=== PATIENT | female | born 1960 | race African-American/Black ===

== ENCOUNTER 2017-08-12 10:02 | Inpatient (IN) | payer OTHER ==
[2017-08-12] MEDS: DICYCLOMINE 20 MG INJ IM (10:30)
[2017-08-12] MEDS: SOD CHLORIDE 0.9% 1,000 ML IV ×3 (10:31→15:01)
[2017-08-12] MEDS: ONDANSETRON 4 MG INJ IV (10:46)
[2017-08-12 11:05] LABS: MODE ROOM AIR; MetHgb Venous 0.4 %; Sample Type Blood venous; Site OTHER; Venous COHb 0.6 %; Venous Oxygen Sat 35.4 mmHG (55.0-75.0); Venous Total Hemglobin 17.9 g/dl
[2017-08-12 11:25] LABS: ADD MAN DIFF? NO
[2017-08-12 11:28] LABS: BASOPHIL # 0.1 10^3/ul (0.0-0.1); BASOPHILS % 0.7 % (0.0-2.0); EOSINOPHILS % 0.1 % (0.0-7.0); LYMPHOCYTES # 2.1 10^3/ul (0.8-2.9); LYMPHOCYTES % 29.2 % (15.0-51.0); MEAN CORPUSCULAR HGB CONC 32.1 g/dl (32.0-37.0); MEAN CORPUSCULAR VOLUME 84.3 fl (82.0-101.0); MEAN PLATELET VOLUME 11.2 fl (7.4-10.4); MONOCYTE # 0.3 10^3/ul (0.3-0.9); MONOCYTES % 4.3 % (0.0-11.0); NEUTROPHIL # 4.7 10^3/ul (1.6-7.5); NEUTROPHILS % 65.3 % (39.0-77.0); PLATELET COUNT 259 10^3/UL (140-415); RED BLOOD COUNT 6.29 10^6/ul (4.20-5.40); RED CELL DISTRIBUTION WIDTH 13.7 % (11.5-14.5)
[2017-08-12 11:28] LABS: WHITE BLOOD COUNT 7.2 10^3/ul (4.8-10.8)
[2017-08-12 12:00] LABS: ADD UMIC YES; UR ASCORBIC ACID 20 mg/dL (NEGATIVE); UR BACTERIA FEW /HPF (NONE SEEN); UR BILIRUBIN (Dip) NEGATIVE (NEGATIVE); UR BLOOD (Dip) NEGATIVE (NEGATIVE); UR CLARITY SLIGHTLY CLOUDY (CLEAR); UR COLOR YELLOW (YELLOW); UR GLUCOSE (Dip) 3+ mg/dL (NEGATIVE); UR KETONES (Dip) 2+ mg/dL (NEGATIVE); UR LEUKOCYTE ESTERASE (Dip) 3+ Leu/ul (NEGATIVE); UR NITRITE (Dip) NEGATIVE (NEGATIVE); UR RBC 24 /HPF (0-5); UR SPECIFIC GRAVITY (Dip) 1.023 (1.003-1.030); UR SQUAMOUS EPITHELIAL CELL FEW /HPF (FEW); UR TOTAL PROTEIN (Dip) 1+ mg/dl (NEGATIVE); UR UROBILINOGEN (Dip) NEGATIVE (NEGATIVE); UR WBC 19 /HPF (0-5)
[2017-08-12 12:05] LABS: ANION GAP 30 (8-16); BLOOD UREA NITROGEN 12 mg/dl (7-20); CALCIUM 10.6 mg/dl (8.4-10.2); CARBON DIOXIDE 11 mmol/L (21-31); CHLORIDE 98 mmol/L (97-110); CREATININE 0.68 mg/dl (0.44-1.00); POTASSIUM 4.1 mmol/L (3.5-5.1); SODIUM 135 mmol/L (135-144)
[2017-08-12 12:10] LABS: GLUCOSE 425 mg/dl (70-220)
[2017-08-12] MEDS ORDERED: POTASSIUM CHLORIDE 40 MEQ in SOD CHLORIDE 0.9% 250 ML IV (12:10)
[2017-08-12 12:28] LABS: PHOSPHORUS 4.1 mg/dl (2.5-4.9)
[2017-08-12 12:28] LABS: MAGNESIUM 1.6 mg/dl (1.7-2.5)
[2017-08-12] MEDS ORDERED: POTASSIUM CHLORIDE 40 MEQ in DEXTROSE 5% 250 ML IV (12:31)
[2017-08-12] MEDS: INSULIN HUMAN REGULAR 100 UNIT in SOD CHLORIDE 0.9% 99 ML IV (13:34)
[2017-08-12] MEDS: MAGNESIUM SULFATE 1 GM/D5W 100 ML IVPB (13:34)
[2017-08-12] MEDS ORDERED: D5W-0.45 NACL + KCL 30 MEQ 1,000 ML IV (14:00)
[2017-08-12 14:49] LABS: ANION GAP 30 (8-16); BLOOD UREA NITROGEN 11 mg/dl (7-20); CALCIUM 9.7 mg/dl (8.4-10.2); CARBON DIOXIDE 13 mmol/L (21-31); CHLORIDE 102 mmol/L (97-110); CREATININE 0.62 mg/dl (0.44-1.00); GLUCOSE 336 mg/dl (70-220); POTASSIUM 4.8 mmol/L (3.5-5.1); SODIUM 140 mmol/L (135-144)
[2017-08-12] MEDS ORDERED: INSULIN HUMAN REGULAR 100 UNIT in SOD CHLORIDE 0.9% 99 ML IV (15:00)
[2017-08-12] MEDS ORDERED: DEXTROSE 50% 50 ML SYRINGE IV ×2 (15:00)
[2017-08-12] MEDS ORDERED: ONDANSETRON 4 MG INJ IV (15:00)
[2017-08-12] MEDS: ACCU-CHEK XX ×9 (15:00→23:00)
[2017-08-12 16:08] LABS: ANION GAP 21 (8-16); BLOOD UREA NITROGEN 10 mg/dl (7-20); CALCIUM 9.1 mg/dl (8.4-10.2); CARBON DIOXIDE 15 mmol/L (21-31); CHLORIDE 106 mmol/L (97-110); CREATININE 0.57 mg/dl (0.44-1.00); GLUCOSE 250 mg/dl (70-220); POTASSIUM 3.9 mmol/L (3.5-5.1); SODIUM 138 mmol/L (135-144)
[2017-08-12 16:41] LABS: HEMOGLOBIN A1C 10.8 % (0-5.9)
[2017-08-12] MEDS: DEXTROSE 5%-0.45% NACL 1,000 ML IV ×2 (17:50→22:43)
[2017-08-12] MEDS: LORAZEPAM 2 MG INJ IV (19:33)
[2017-08-12 19:40] LABS: ANION GAP 14 (8-16); BLOOD UREA NITROGEN 9 mg/dl (7-20); CALCIUM 9.5 mg/dl (8.4-10.2); CARBON DIOXIDE 22 mmol/L (21-31); CHLORIDE 108 mmol/L (97-110); CREATININE 0.48 mg/dl (0.44-1.00); GLUCOSE 102 mg/dl (70-220); POTASSIUM 3.7 mmol/L (3.5-5.1); SODIUM 140 mmol/L (135-144)
[2017-08-12] MEDS: FAMOTIDINE 20 MG INJ IV (21:00)
[2017-08-12] MEDS: DOCUSATE SODIUM 100 MG CAP PO (21:00)
[2017-08-13 00:41] LABS: ANION GAP 13 (8-16); BLOOD UREA NITROGEN 7 mg/dl (7-20); CALCIUM 9.2 mg/dl (8.4-10.2); CARBON DIOXIDE 22 mmol/L (21-31); CHLORIDE 103 mmol/L (97-110); CREATININE 0.47 mg/dl (0.44-1.00); GLUCOSE 330 mg/dl (70-220); POTASSIUM 3.7 mmol/L (3.5-5.1); SODIUM 134 mmol/L (135-144)
[2017-08-13] MEDS: ACCU-CHEK XX ×13 (01:00→12:00)
[2017-08-13 05:29] LABS: ADD MAN DIFF? NO
[2017-08-13 05:31] LABS: WHITE BLOOD COUNT 7.7 10^3/ul (4.8-10.8)
[2017-08-13 05:31] LABS: BASOPHILS % 0.4 % (0.0-2.0); EOSINOPHILS # 0.1 10^3/ul (0.0-0.5); EOSINOPHILS % 1.6 % (0.0-7.0); HEMATOCRIT 38.7 % (37.0-47.0); HEMOGLOBIN 12.6 g/dl (12.0-16.0); LYMPHOCYTES # 2.5 10^3/ul (0.8-2.9); LYMPHOCYTES % 32.5 % (15.0-51.0); MEAN CORPUSCULAR HEMOGLOBIN 26.5 pg (29.0-33.0); MEAN CORPUSCULAR HGB CONC 32.6 g/dl (32.0-37.0); MEAN CORPUSCULAR VOLUME 81.3 fl (82.0-101.0); MEAN PLATELET VOLUME 10.5 fl (7.4-10.4); MONOCYTE # 0.7 10^3/ul (0.3-0.9); MONOCYTES % 9.5 % (0.0-11.0); NEUTROPHIL # 4.2 10^3/ul (1.6-7.5); NEUTROPHILS % 55.5 % (39.0-77.0); PLATELET COUNT 226 10^3/UL (140-415); RED BLOOD COUNT 4.76 10^6/ul (4.20-5.40); RED CELL DISTRIBUTION WIDTH 13.4 % (11.5-14.5)
[2017-08-13] MEDS: INSULIN GLARGINE [LANtus] 3 ML PEN SC ×3 (05:51→11:06)
[2017-08-13 06:01] LABS: ANION GAP 10 (8-16); BLOOD UREA NITROGEN 5 mg/dl (7-20); CALCIUM 9.8 mg/dl (8.4-10.2); CARBON DIOXIDE 25 mmol/L (21-31); CHLORIDE 109 mmol/L (97-110); CREATININE 0.47 mg/dl (0.44-1.00); POTASSIUM 3.2 mmol/L (3.5-5.1); SODIUM 141 mmol/L (135-144)
[2017-08-13 06:11] LABS: GLUCOSE 42 mg/dl (70-220)
[2017-08-13] MEDS: DEXTROSE 5%-0.45% NACL 1,000 ML IV (06:43)
[2017-08-13] MEDS: SOD CHLORIDE 0.9% 1,000 ML IV ×2 (06:43→07:08)
[2017-08-13 06:45] LABS: MAGNESIUM 1.5 mg/dl (1.7-2.5)
[2017-08-13 06:45] LABS: PHOSPHORUS 1.8 mg/dl (2.5-4.9)
[2017-08-13] MEDS: POTASSIUM CHLORIDE 50 ML IVPB ×2 (07:00→08:00)
[2017-08-13] MEDS: POTASSIUM CHLORIDE (SR) 10 MEQ TAB PO (07:03)
[2017-08-13] MEDS: POTASSIUM CHLORIDE 40 MEQ in SOD CHLORIDE 0.9% 250 ML IV (07:47)
[2017-08-13] MEDS: DOCUSATE SODIUM 100 MG CAP PO (09:00)
[2017-08-13] MEDS: MAGNESIUM SULFATE 2 GM/50 ML 50 ML IVPB (09:07)
[2017-08-13] MEDS: FAMOTIDINE 20 MG INJ IV (09:07)
[2017-08-13] MEDS: POTASSIUM PHOSPHATE 15 MM in SOD CHLORIDE 0.9% 250 ML IVPB (11:04)
[2017-08-13] MEDS: INSULIN ASPART [NOVOLOG] 3 ML PEN SC ×2 (11:30→13:22)
[2017-08-13] MEDS ORDERED: GLUCOSE GEL 15 GRAM TUBE BUCCAL (13:00)
[2017-08-13] MEDS ORDERED: DEXTROSE 50% 50 ML SYRINGE IV ×2 (13:00)
[2017-08-13] MEDS ORDERED: GLUCOSE GEL 15 GRAM TUBE PO ×2 (13:00)
[2017-08-13] MEDS ORDERED: GLUCAGON 1 MG INJ IM (13:00)
[2017-08-13] MEDS ORDERED: INSULIN ASPART [NOVOLOG] 3 ML PEN SC (17:35)
== END 2017-08-13 14:33 | disposition left against medical advice (07) | DRG 639 ==
LOC: E/R 10:02 → ICU 12:42
DX: E10.10 Type 1 diabetes mellitus with ketoacidosis without coma (principal); E83.42 Hypomagnesemia; R11.2 Nausea with vomiting, unspecified; E86.0 Dehydration; F17.210 Nicotine dependence, cigarettes, uncomplicated; F12.90 Cannabis use, unspecified, uncomplicated; F32.9 Major depressive disorder, single episode, unspecified; Z79.4 Long term (current) use of insulin
CPT/HCPCS: 36415; 71045; 80048; 81001; 82803; 82962; 83036; 83735; 84100; 85025; 87086; 93005; 96361; 96374; 96375; 99291-25

== ENCOUNTER 2017-10-18 12:08 | Emergency (ER) | payer OTHER ==
[2017-10-18 14:02] LABS: ADD UMIC YES; UR ASCORBIC ACID NEGATIVE (NEGATIVE); UR BILIRUBIN (Dip) NEGATIVE (NEGATIVE); UR BLOOD (Dip) NEGATIVE (NEGATIVE); UR CLARITY CLEAR (CLEAR); UR COLOR YELLOW (YELLOW); UR GLUCOSE (Dip) 3+ mg/dL (NEGATIVE); UR KETONES (Dip) TRACE mg/dL (NEGATIVE); UR LEUKOCYTE ESTERASE (Dip) 2+ Leu/ul (NEGATIVE); UR NITRITE (Dip) NEGATIVE (NEGATIVE); UR RBC 4 /HPF (0-5); UR SPECIFIC GRAVITY (Dip) 1.032 (1.003-1.030); UR SQUAMOUS EPITHELIAL CELL FEW /HPF (FEW); UR TOTAL PROTEIN (Dip) NEGATIVE (NEGATIVE); UR UROBILINOGEN (Dip) NEGATIVE (NEGATIVE); UR WBC 5 /HPF (0-5)
== END 2017-10-18 14:51 | disposition home or self-care (01) ==
LOC: FTE 12:08
DX: M54.6 Pain in thoracic spine (principal); N39.0 Urinary tract infection, site not specified
CPT/HCPCS: 71045; 81001; 99284-25

== ENCOUNTER 2017-12-15 12:18 | Emergency (ER) | payer OTHER ==
[2017-12-15] MEDS: ONDANSETRON 4 MG INJ IV (13:03)
[2017-12-15 13:07] LABS: ADD MAN DIFF? NO
[2017-12-15 13:09] LABS: BASOPHILS % 0.4 % (0.0-2.0); EOSINOPHILS % 0.4 % (0.0-7.0); HEMATOCRIT 45.6 % (37.0-47.0); HEMOGLOBIN 15.2 g/dl (12.0-16.0); LYMPHOCYTES # 1.5 10^3/ul (0.8-2.9); LYMPHOCYTES % 15.8 % (15.0-51.0); MEAN CORPUSCULAR HEMOGLOBIN 26.5 pg (29.0-33.0); MEAN CORPUSCULAR HGB CONC 33.3 g/dl (32.0-37.0); MEAN CORPUSCULAR VOLUME 79.6 fl (82.0-101.0); MEAN PLATELET VOLUME 11.4 fl (7.4-10.4); MONOCYTE # 0.4 10^3/ul (0.3-0.9); MONOCYTES % 3.9 % (0.0-11.0); NEUTROPHIL # 7.6 10^3/ul (1.6-7.5); PLATELET COUNT 230 10^3/UL (140-415); RED BLOOD COUNT 5.73 10^6/ul (4.20-5.40); RED CELL DISTRIBUTION WIDTH 13.1 % (11.5-14.5)
[2017-12-15 13:09] LABS: WHITE BLOOD COUNT 9.6 10^3/ul (4.8-10.8)
[2017-12-15 13:20] LABS: ADD UMIC YES; UR ASCORBIC ACID NEGATIVE (NEGATIVE); UR BILIRUBIN (Dip) NEGATIVE (NEGATIVE); UR BLOOD (Dip) NEGATIVE (NEGATIVE); UR CLARITY SLIGHTLY CLOUDY (CLEAR); UR COLOR YELLOW (YELLOW); UR GLUCOSE (Dip) 3+ mg/dL (NEGATIVE); UR KETONES (Dip) 1+ mg/dL (NEGATIVE); UR LEUKOCYTE ESTERASE (Dip) 3+ Leu/ul (NEGATIVE); UR NITRITE (Dip) NEGATIVE (NEGATIVE); UR RBC 15 /HPF (0-5); UR SPECIFIC GRAVITY (Dip) 1.021 (1.003-1.030); UR SQUAMOUS EPITHELIAL CELL FEW /HPF (FEW); UR TOTAL PROTEIN (Dip) 1+ mg/dl (NEGATIVE); UR UROBILINOGEN (Dip) NEGATIVE (NEGATIVE); UR WBC 11 /HPF (0-5)
[2017-12-15 13:28] LABS: ALANINE AMINOTRANSFERASE 43 IU/L (13-69); ALBUMIN 4.5 g/dl (3.3-4.9); ALBUMIN/GLOBULIN RATIO 1.28; ALKALINE PHOSPHATASE 110 IU/L (42-121); ANION GAP 18 (8-16); ASPARTATE AMINO TRANSFERASE 24 IU/L (15-46); BILIRUBIN,INDIRECT 0.6 mg/dl (0-1.1); BILIRUBIN,TOTAL 0.6 mg/dl (0.2-1.3); BLOOD UREA NITROGEN 7 mg/dl (7-20); CALCIUM 10.1 mg/dl (8.4-10.2); CARBON DIOXIDE 29 mmol/L (21-31); CHLORIDE 101 mmol/L (97-110); CREATININE 0.47 mg/dl (0.44-1.00); GLUCOSE 335 mg/dl (70-220); LIPASE 15 U/L (23-300); POTASSIUM 3.4 mmol/L (3.5-5.1); SODIUM 145 mmol/L (135-144)
[2017-12-15] MEDS: CEFTRIAXONE 1 GM/50 ML (PMX) 50 ML IVPB (13:54)
[2017-12-15] MEDS: SOD CHLORIDE 0.9% 1,000 ML IV (13:54)
[2017-12-15] MEDS: METOCLOPRAMIDE 10 MG INJ IV (14:26)
[2017-12-15] MEDS: KETOROLAC 30 MG INJ IV (15:01)
== END 2017-12-15 15:39 | disposition home or self-care (01) ==
LOC: E/R 12:18
DX: E11.65 Type 2 diabetes mellitus with hyperglycemia (principal); N39.0 Urinary tract infection, site not specified; Z79.4 Long term (current) use of insulin; Z87.891 Personal history of nicotine dependence
CPT/HCPCS: 36415; 80053; 81001; 82962; 83690; 85025; 96374; 96375; 99284-25

== ENCOUNTER 2018-02-21 14:14 | Inpatient (IN) | payer OTHER ==
[~2018-02-21 14:14] MED LIST: CEFAZOLIN 1 GM INJ; METOPROLOL 5 MG INJ
[2018-02-21] MEDS ORDERED: HEPARIN 1000 UNITS/ML 10 ML INJ (15:35)
[2018-02-21] MEDS ORDERED: ONDANSETRON 4 MG INJ IV (16:30)
[2018-02-21] MEDS ORDERED: DIPHENHYDRAMINE 50 MG INJ IV (16:30)
[2018-02-21] MEDS ORDERED: hydrALAzine 20 MG INJ IV (16:30)
[2018-02-21] MEDS ORDERED: METOCLOPRAMIDE 10 MG INJ IV (16:30)
[2018-02-21] MEDS ORDERED: MIDAZOLAM 1 MG/ML 2 ML INJ (17:29)
[2018-02-21] MEDS ORDERED: PHENYLephrine (100 MCG/ML) 5ML SYG (17:45)
[2018-02-21] MEDS: CEFAZOLIN 1 GM INJ (18:12)
[2018-02-21] MEDS: GELATIN SIZE 100 SPONGE (18:12)
[2018-02-21] MEDS: THROMBIN 5000 UNIT VIAL (18:12)
[2018-02-21] MEDS ORDERED: hydrALAzine 20 MG INJ ×2 (18:24→19:49)
[2018-02-21] MEDS ORDERED: FENTAnyl 50 MCG/ML VIAL ×2 (18:26→19:49)
[2018-02-21] MEDS ORDERED: NALOXONE (0.4 MG/ML) INJ IV (18:30)
[2018-02-21] MEDS ORDERED: ACETAMINOPHEN 325 MG TAB PO (18:30)
[2018-02-21] MEDS ORDERED: NACL 0.9% 3 ML SYG IV (18:30)
[2018-02-21] MEDS: ACETAMINOPHEN 1000MG/100ML IV 100 ML IVPB (18:30)
[2018-02-21] MEDS ORDERED: ETOMIDATE 20 MG INJ (19:42)
[2018-02-21] MEDS ORDERED: ROCURONIUM 50 MG INJ (19:42)
[2018-02-21] MEDS ORDERED: GLYCOPYRROLATE 0.4 MG INJ (19:42)
[2018-02-21] MEDS ORDERED: NEOSTIGMINE 3 MG/3 ML SYRINGE (19:42)
[2018-02-21] MEDS ORDERED: LIDOCAINE 2% (SDV) 5 ML INJ (19:42)
[2018-02-21] MEDS ORDERED: ONDANSETRON 4 MG INJ (19:42)
[2018-02-21] MEDS: FENTAnyl 50 MCG/ML VIAL IV ×5 (20:26→21:03)
[2018-02-21] MEDS: LABETALOL HCL 20MG INJ IV ×2 (20:50→21:07)
[2018-02-21] MEDS: HYDROmorphONE 0.5 MG/0.5 ML SYG IV (22:01)
[2018-02-21] MEDS: NS + KCL 20 MEQ 1,000 ML IV (22:20)
[2018-02-21] MEDS: CEFAZOLIN 2 GM/50 ML (PMX) 50 ML IVPB (22:45)
[2018-02-21] MEDS ORDERED: DEXTROSE 50% 50 ML SYRINGE IV (23:30)
[2018-02-21] MEDS ORDERED: GLUCAGON 1 MG INJ IM (23:30)
[2018-02-21] MEDS ORDERED: GLUCOSE GEL 15 GRAM TUBE BUCCAL (23:30)
[2018-02-21] MEDS ORDERED: GLUCOSE GEL 15 GRAM TUBE PO ×2 (23:30)
[2018-02-22] MEDS: ACETAMINOPHEN 1000MG/100ML IV 100 ML IVPB ×4 (00:25→17:39)
[2018-02-22] MEDS: INSULIN ASPART [NOVOLOG] 3 ML PEN SC ×6 (00:37→20:49)
[2018-02-22] MEDS ORDERED: ACCU-CHEK XX (02:00)
[2018-02-22] MEDS: HYDROmorphONE 0.5 MG/0.5 ML SYG IV ×7 (04:01→23:35)
[2018-02-22 04:47] LABS: HEMATOCRIT 37.5 % (37.0-47.0); HEMOGLOBIN 12.2 g/dl (12.0-16.0)
[2018-02-22 05:03] LABS: HEMOGLOBIN A1C 10.9 % (0-5.9)
[2018-02-22 05:14] LABS: ANION GAP 10 (8-16); BLOOD UREA NITROGEN 6 mg/dl (7-20); CALCIUM 8.5 mg/dl (8.4-10.2); CARBON DIOXIDE 29 mmol/L (21-31); CHLORIDE 105 mmol/L (97-110); CREATININE 0.37 mg/dl (0.44-1.00); GLUCOSE 146 mg/dl (70-220); SODIUM 141 mmol/L (135-144)
[2018-02-22 05:17] LABS: CHOLESTEROL 100 mg/dl (100-200)
[2018-02-22 05:17] LABS: CHOL/HDL RATIO 2.4 RATIO; HDL CHOLESTEROL 41 mg/dl (37-92); LDL CHOLESTEROL,CALCULATED 44 mg/dl; TRIGLYCERIDES 77 mg/dl (0-149)
[2018-02-22 05:24] LABS: POTASSIUM 2.9 mmol/L (3.5-5.1)
[2018-02-22] MEDS: NS + KCL 20 MEQ 1,000 ML IV ×2 (05:35→14:53)
[2018-02-22] MEDS: CEFAZOLIN 2 GM/50 ML (PMX) 50 ML IVPB ×3 (05:39→21:51)
[2018-02-22] MEDS: POTASSIUM CHLORIDE (SR) 20 MEQ TAB PO (05:39)
[2018-02-22] MEDS: PAROXETINE 20 MG TAB PO (08:51)
[2018-02-22] MEDS: GABAPENTIN 400 MG CAP PO ×3 (08:53→20:45)
[2018-02-22] MEDS: QUETIAPINE 25 MG TAB PO (08:53)
[2018-02-22] MEDS: INSULIN DETEMIR [LEVEMIR] (100 UNITS/ML) SYG SC (08:56)
[2018-02-22] MEDS: METOPROLOL 25 MG TAB PO ×2 (08:57→20:44)
[2018-02-22] MEDS ORDERED: ONDANSETRON 4 MG INJ (09:28)
[2018-02-22] MEDS: ONDANSETRON 4 MG INJ IV (09:32)
[2018-02-22] MEDS: DEXTROSE 50% 50 ML SYRINGE IV (17:46)
[2018-02-23] MEDS: ACETAMINOPHEN 1000MG/100ML IV 100 ML IVPB ×4 (00:42→17:48)
[2018-02-23] MEDS: NS + KCL 20 MEQ 1,000 ML IV ×3 (00:42→22:23)
[2018-02-23] MEDS: INSULIN ASPART [NOVOLOG] 3 ML PEN SC ×6 (00:54→20:56)
[2018-02-23] MEDS: HYDROmorphONE 0.5 MG/0.5 ML SYG IV ×4 (02:50→20:12)
[2018-02-23] MEDS: CEFAZOLIN 2 GM/50 ML (PMX) 50 ML IVPB ×3 (05:10→21:41)
[2018-02-23] MEDS: GABAPENTIN 400 MG CAP PO ×3 (08:37→20:54)
[2018-02-23] MEDS: METOPROLOL 25 MG TAB PO ×2 (08:37→20:54)
[2018-02-23] MEDS: PAROXETINE 20 MG TAB PO (08:38)
[2018-02-23] MEDS: QUETIAPINE 25 MG TAB PO (08:39)
[2018-02-23] MEDS: INSULIN DETEMIR [LEVEMIR] (100 UNITS/ML) SYG SC (08:39)
[2018-02-24] MEDS: ACETAMINOPHEN 1000MG/100ML IV 100 ML IVPB ×4 (00:08→18:01)
[2018-02-24] MEDS: HYDROmorphONE 0.5 MG/0.5 ML SYG IV ×4 (01:10→18:04)
[2018-02-24] MEDS: CEFAZOLIN 2 GM/50 ML (PMX) 50 ML IVPB ×3 (05:47→21:15)
[2018-02-24] MEDS: NS + KCL 20 MEQ 1,000 ML IV ×2 (06:30→16:30)
[2018-02-24] MEDS: ONDANSETRON 4 MG INJ IV ×2 (06:53→13:30)
[2018-02-24] MEDS: GABAPENTIN 400 MG CAP PO ×3 (08:23→21:15)
[2018-02-24] MEDS: METOPROLOL 25 MG TAB PO ×2 (08:23→21:14)
[2018-02-24] MEDS: PAROXETINE 20 MG TAB PO (08:24)
[2018-02-24] MEDS: QUETIAPINE 25 MG TAB PO ×2 (08:24→21:15)
[2018-02-24] MEDS: INSULIN ASPART [NOVOLOG] 3 ML PEN SC ×4 (08:28→21:17)
[2018-02-24] MEDS: INSULIN DETEMIR [LEVEMIR] (100 UNITS/ML) SYG SC (08:28)
[2018-02-24 11:22] LABS: ADD MAN DIFF? NO
[2018-02-24 11:25] LABS: BASOPHILS % 0.2 % (0.0-2.0); EOSINOPHILS % 0.1 % (0.0-7.0); HEMATOCRIT 36.4 % (37.0-47.0); HEMOGLOBIN 11.8 g/dl (12.0-16.0); IMMATURE GRANS #M 0.06 10^3/ul; IMMATURE GRANS % (M) 0.7 %; LYMPHOCYTES # 0.6 10^3/ul (0.8-2.9); MEAN CORPUSCULAR HEMOGLOBIN 27.3 pg (29.0-33.0); MEAN CORPUSCULAR HGB CONC 32.4 g/dl (32.0-37.0); MEAN CORPUSCULAR VOLUME 84.3 fl (82.0-101.0); MEAN PLATELET VOLUME 11.9 fl (7.4-10.4); MONOCYTE # 0.4 10^3/ul (0.3-0.9); MONOCYTES % 4.7 % (0.0-11.0); NEUTROPHIL # 6.9 10^3/ul (1.6-7.5); NEUTROPHILS % 86.3 % (39.0-77.0); PLATELET COUNT 157 10^3/UL (140-415); RED BLOOD COUNT 4.32 10^6/ul (4.20-5.40); RED CELL DISTRIBUTION WIDTH 14.1 % (11.5-14.5)
[2018-02-24 11:48] LABS: HEMOGLOBIN A1C 6.2 % (0-5.9)
[2018-02-24] MEDS: PANTOPRAZOLE (EC) 40 MG TAB PO (18:01)
[2018-02-24] MEDS: DOCUSATE SODIUM 100 MG CAP PO (21:14)
[2018-02-25] MEDS: NS + KCL 20 MEQ 1,000 ML IV ×2 (00:03→12:38)
[2018-02-25] MEDS: ACETAMINOPHEN 1000MG/100ML IV 100 ML IVPB ×5 (00:03→23:53)
[2018-02-25 05:20] LABS: ADD MAN DIFF? NO
[2018-02-25 05:28] LABS: BASOPHILS % 0.3 % (0.0-2.0); EOSINOPHILS # 0.1 10^3/ul (0.0-0.5); EOSINOPHILS % 0.7 % (0.0-7.0); HEMATOCRIT 37.4 % (37.0-47.0); HEMOGLOBIN 11.8 g/dl (12.0-16.0); IMMATURE GRANS #M 0.03 10^3/ul; IMMATURE GRANS % (M) 0.4 %; LYMPHOCYTES # 1.2 10^3/ul (0.8-2.9); LYMPHOCYTES % 17.1 % (15.0-51.0); MEAN CORPUSCULAR HEMOGLOBIN 26.3 pg (29.0-33.0); MEAN CORPUSCULAR HGB CONC 31.6 g/dl (32.0-37.0); MEAN CORPUSCULAR VOLUME 83.5 fl (82.0-101.0); MEAN PLATELET VOLUME 11.8 fl (7.4-10.4); MONOCYTE # 0.5 10^3/ul (0.3-0.9); MONOCYTES % 7.4 % (0.0-11.0); NEUTROPHIL # 5.2 10^3/ul (1.6-7.5); NEUTROPHILS % 74.1 % (39.0-77.0); PLATELET COUNT 195 10^3/UL (140-415); RED BLOOD COUNT 4.48 10^6/ul (4.20-5.40); RED CELL DISTRIBUTION WIDTH 14.2 % (11.5-14.5)
[2018-02-25] MEDS: CEFAZOLIN 2 GM/50 ML (PMX) 50 ML IVPB ×3 (05:45→22:42)
[2018-02-25] MEDS: PANTOPRAZOLE (EC) 40 MG TAB PO (05:46)
[2018-02-25 06:07] LABS: ANION GAP 9 (8-16); BLOOD UREA NITROGEN 8 mg/dl (7-20); CALCIUM 8.9 mg/dl (8.4-10.2); CARBON DIOXIDE 31 mmol/L (21-31); CHLORIDE 106 mmol/L (97-110); CREATININE 0.49 mg/dl (0.44-1.00); GLUCOSE 98 mg/dl (70-220); POTASSIUM 3.6 mmol/L (3.5-5.1); SODIUM 142 mmol/L (135-144)
[2018-02-25] MEDS: PAROXETINE 20 MG TAB PO (08:37)
[2018-02-25] MEDS: GABAPENTIN 400 MG CAP PO ×3 (08:37→21:00)
[2018-02-25] MEDS: DOCUSATE SODIUM 100 MG CAP PO ×2 (08:38→20:58)
[2018-02-25] MEDS: INSULIN DETEMIR [LEVEMIR] (100 UNITS/ML) SYG SC (08:38)
[2018-02-25] MEDS: INSULIN ASPART [NOVOLOG] 3 ML PEN SC ×4 (08:39→21:00)
[2018-02-25] MEDS: METOPROLOL 25 MG TAB PO ×2 (08:40→20:59)
[2018-02-25] MEDS: HYDROmorphONE 0.5 MG/0.5 ML SYG IV ×2 (08:48→22:50)
[2018-02-25 09:57] LABS: INR 1.05; PROTIME 13.8 Sec (11.9-14.9); PT RATIO 1.1
[2018-02-25 09:58] LABS: PARTIAL THROMBOPLASTIN TIME 36.6 Sec (25.0-35.0)
[2018-02-25 10:08] LABS: ANION GAP 13 (8-16); BLOOD UREA NITROGEN 7 mg/dl (7-20); CALCIUM 9.1 mg/dl (8.4-10.2); CARBON DIOXIDE 30 mmol/L (21-31); CHLORIDE 102 mmol/L (97-110); CREATININE 0.47 mg/dl (0.44-1.00); GLUCOSE 168 mg/dl (70-220); POTASSIUM 4.1 mmol/L (3.5-5.1); SODIUM 141 mmol/L (135-144)
[2018-02-25] MEDS: QUETIAPINE 25 MG TAB PO (22:47)
[2018-02-26] MEDS: NS + KCL 20 MEQ 1,000 ML IV ×3 (03:57→17:50)
[2018-02-26] MEDS: HYDROmorphONE 0.5 MG/0.5 ML SYG IV ×4 (04:56→21:29)
[2018-02-26 05:04] LABS: ADD MAN DIFF? NO
[2018-02-26 05:13] LABS: BASOPHILS % 0.5 % (0.0-2.0); EOSINOPHILS # 0.1 10^3/ul (0.0-0.5); EOSINOPHILS % 1.2 % (0.0-7.0); HEMATOCRIT 35.1 % (37.0-47.0); HEMOGLOBIN 11.3 g/dl (12.0-16.0); IMMATURE GRANS #M 0.03 10^3/ul; IMMATURE GRANS % (M) 0.5 %; LYMPHOCYTES # 1.5 10^3/ul (0.8-2.9); LYMPHOCYTES % 23.4 % (15.0-51.0); MEAN CORPUSCULAR HEMOGLOBIN 26.5 pg (29.0-33.0); MEAN CORPUSCULAR HGB CONC 32.2 g/dl (32.0-37.0); MEAN CORPUSCULAR VOLUME 82.4 fl (82.0-101.0); MEAN PLATELET VOLUME 11.3 fl (7.4-10.4); MONOCYTE # 0.6 10^3/ul (0.3-0.9); MONOCYTES % 8.5 % (0.0-11.0); NEUTROPHIL # 4.3 10^3/ul (1.6-7.5); NEUTROPHILS % 65.9 % (39.0-77.0); PLATELET COUNT 228 10^3/UL (140-415); RED BLOOD COUNT 4.26 10^6/ul (4.20-5.40); RED CELL DISTRIBUTION WIDTH 14.1 % (11.5-14.5)
[2018-02-26 05:13] LABS: WHITE BLOOD COUNT 6.5 10^3/ul (4.8-10.8)
[2018-02-26] MEDS: CEFAZOLIN 2 GM/50 ML (PMX) 50 ML IVPB ×3 (05:31→21:30)
[2018-02-26] MEDS: PANTOPRAZOLE (EC) 40 MG TAB PO (05:33)
[2018-02-26 05:35] LABS: ANION GAP 9 (8-16); BLOOD UREA NITROGEN 6 mg/dl (7-20); CALCIUM 8.9 mg/dl (8.4-10.2); CARBON DIOXIDE 32 mmol/L (21-31); CHLORIDE 102 mmol/L (97-110); CREATININE 0.47 mg/dl (0.44-1.00); GLUCOSE 183 mg/dl (70-220); POTASSIUM 3.4 mmol/L (3.5-5.1); SODIUM 140 mmol/L (135-144)
[2018-02-26] MEDS: ACETAMINOPHEN 1000MG/100ML IV 100 ML IVPB ×3 (06:19→17:50)
[2018-02-26] MEDS ORDERED: BUPIVACAINE 0.5%/EPI (SDV) 30 ML INJ (07:19)
[2018-02-26] MEDS: INSULIN ASPART [NOVOLOG] 3 ML PEN SC ×4 (07:50→21:00)
[2018-02-26] MEDS ORDERED: HYDROmorphONE 1 MG/5 ML IV SYRINGE IV (08:00)
[2018-02-26] MEDS ORDERED: hydrALAzine 20 MG INJ IV (08:00)
[2018-02-26] MEDS ORDERED: ONDANSETRON 4 MG INJ IV (08:00)
[2018-02-26] MEDS: DOCUSATE SODIUM 100 MG CAP PO ×2 (08:07→21:41)
[2018-02-26] MEDS: GABAPENTIN 400 MG CAP PO ×3 (08:07→21:31)
[2018-02-26] MEDS: INSULIN DETEMIR [LEVEMIR] (100 UNITS/ML) SYG SC (08:07)
[2018-02-26] MEDS: PAROXETINE 20 MG TAB PO (08:07)
[2018-02-26] MEDS: METOPROLOL 25 MG TAB PO ×2 (08:07→21:32)
[2018-02-26] MEDS: GELATIN SIZE 100 SPONGE (09:15)
[2018-02-26] MEDS: THROMBIN 5000 UNIT VIAL (09:15)
[2018-02-26] MEDS ORDERED: METOPROLOL 5 MG INJ (09:32)
[2018-02-26] MEDS ORDERED: ONDANSETRON 4 MG INJ (09:32)
[2018-02-26] MEDS ORDERED: hydrALAzine 20 MG INJ (09:32)
[2018-02-26] MEDS ORDERED: LIDOCAINE 1% (MDV) 20 ML INJ (09:32)
[2018-02-26] MEDS ORDERED: SUCCINYLCHOLINE CHLORIDE 100 MG/5 ML SYG IV (09:32)
[2018-02-26] MEDS ORDERED: PHENYLephrine (100 MCG/ML) 5ML SYG (09:32)
[2018-02-26] MEDS ORDERED: ROCURONIUM 50 MG INJ (09:32)
[2018-02-26] MEDS ORDERED: MIDAZOLAM 1 MG/ML 2 ML INJ (09:32)
[2018-02-26] MEDS ORDERED: METOCLOPRAMIDE 10 MG INJ (09:32)
[2018-02-26] MEDS ORDERED: ETOMIDATE 20 MG INJ (09:32)
[2018-02-26] MEDS ORDERED: CEFAZOLIN 1 GM INJ (09:32)
[2018-02-26] MEDS: POLYMYXIN/BACITRACIN 1L IRRIG (10:02)
[2018-02-26] MEDS: ROPIVACAINE 0.5 % 30 ML VIAL (10:03)
[2018-02-26] MEDS ORDERED: SUGAMMADEX SODIUM 200 MG/2 ML VIAL IV (10:10)
[2018-02-26] MEDS: LABETALOL HCL 20MG INJ IV ×2 (10:35→11:09)
[2018-02-26] MEDS: HYDROmorphONE 1 MG/5 ML IV SYRINGE IV (11:09)
[2018-02-26 13:45] LABS: ANION GAP 12 (8-16); BLOOD UREA NITROGEN 8 mg/dl (7-20); CALCIUM 8.2 mg/dl (8.4-10.2); CARBON DIOXIDE 27 mmol/L (21-31); CHLORIDE 102 mmol/L (97-110); GLUCOSE 277 mg/dl (70-220); POTASSIUM 3.4 mmol/L (3.5-5.1); SODIUM 138 mmol/L (135-144)
[2018-02-26] MEDS: hydrALAzine 20 MG INJ IV (18:01)
[2018-02-26] MEDS: QUETIAPINE 25 MG TAB PO (21:31)
[2018-02-27] MEDS: ACETAMINOPHEN 1000MG/100ML IV 100 ML IVPB ×4 (00:06→18:19)
[2018-02-27] MEDS: HYDROmorphONE 0.5 MG/0.5 ML SYG IV ×8 (03:33→22:07)
[2018-02-27 05:12] LABS: ADD MAN DIFF? NO
[2018-02-27 05:13] LABS: WHITE BLOOD COUNT 5.2 10^3/ul (4.8-10.8)
[2018-02-27 05:13] LABS: BASOPHILS % 0.6 % (0.0-2.0); EOSINOPHILS # 0.1 10^3/ul (0.0-0.5); EOSINOPHILS % 1.1 % (0.0-7.0); HEMATOCRIT 34.1 % (37.0-47.0); HEMOGLOBIN 10.9 g/dl (12.0-16.0); LYMPHOCYTES # 1.2 10^3/ul (0.8-2.9); LYMPHOCYTES % 23.3 % (15.0-51.0); MEAN CORPUSCULAR HEMOGLOBIN 26.9 pg (29.0-33.0); MEAN CORPUSCULAR VOLUME 84.2 fl (82.0-101.0); MEAN PLATELET VOLUME 10.6 fl (7.4-10.4); MONOCYTE # 0.6 10^3/ul (0.3-0.9); MONOCYTES % 10.9 % (0.0-11.0); NEUTROPHIL # 3.3 10^3/ul (1.6-7.5); NEUTROPHILS % 63.3 % (39.0-77.0); PLATELET COUNT 251 10^3/UL (140-415); RED BLOOD COUNT 4.05 10^6/ul (4.20-5.40); RED CELL DISTRIBUTION WIDTH 14.1 % (11.5-14.5)
[2018-02-27] MEDS: CEFAZOLIN 2 GM/50 ML (PMX) 50 ML IVPB ×3 (05:21→22:07)
[2018-02-27] MEDS: PANTOPRAZOLE (EC) 40 MG TAB PO (05:22)
[2018-02-27 05:31] LABS: ANION GAP 14 (8-16); BLOOD UREA NITROGEN 3 mg/dl (7-20); CALCIUM 8.6 mg/dl (8.4-10.2); CARBON DIOXIDE 27 mmol/L (21-31); CHLORIDE 103 mmol/L (97-110); CREATININE 0.42 mg/dl (0.44-1.00); GLUCOSE 162 mg/dl (70-220); POTASSIUM 3.5 mmol/L (3.5-5.1); SODIUM 140 mmol/L (135-144)
[2018-02-27] MEDS: NS + KCL 20 MEQ 1,000 ML IV ×2 (07:51→14:30)
[2018-02-27] MEDS: DOCUSATE SODIUM 100 MG CAP PO ×2 (08:33→20:28)
[2018-02-27] MEDS: GABAPENTIN 400 MG CAP PO ×3 (08:33→20:26)
[2018-02-27] MEDS: INSULIN DETEMIR [LEVEMIR] (100 UNITS/ML) SYG SC (08:34)
[2018-02-27] MEDS: INSULIN ASPART [NOVOLOG] 3 ML PEN SC ×4 (08:35→20:36)
[2018-02-27] MEDS: PAROXETINE 20 MG TAB PO (08:36)
[2018-02-27] MEDS: METOPROLOL 25 MG TAB PO ×2 (08:37→20:31)
[2018-02-27] MEDS: HYDROCODONE/APAP (5/325) TAB PO (17:18)
[2018-02-27] MEDS: QUETIAPINE 25 MG TAB PO (20:39)
[2018-02-28] MEDS: HYDROmorphONE 0.5 MG/0.5 ML SYG IV ×8 (00:13→21:54)
[2018-02-28] MEDS: ACETAMINOPHEN 1000MG/100ML IV 100 ML IVPB ×4 (00:18→18:30)
[2018-02-28] MEDS: NS + KCL 20 MEQ 1,000 ML IV ×3 (00:30→20:30)
[2018-02-28 05:49] LABS: ADD MAN DIFF? NO; BASOPHILS % 0.3 % (0.0-2.0); EOSINOPHILS # 0.1 10^3/ul (0.0-0.5); HEMATOCRIT 31.7 % (37.0-47.0); HEMOGLOBIN 10.2 g/dl (12.0-16.0); LYMPHOCYTES # 1.2 10^3/ul (0.8-2.9); LYMPHOCYTES % 20.5 % (15.0-51.0); MEAN CORPUSCULAR HEMOGLOBIN 26.8 pg (29.0-33.0); MEAN CORPUSCULAR HGB CONC 32.2 g/dl (32.0-37.0); MEAN CORPUSCULAR VOLUME 83.4 fl (82.0-101.0); MEAN PLATELET VOLUME 10.8 fl (7.4-10.4); MONOCYTE # 0.8 10^3/ul (0.3-0.9); MONOCYTES % 13.8 % (0.0-11.0); NEUTROPHIL # 3.7 10^3/ul (1.6-7.5); NEUTROPHILS % 63.9 % (39.0-77.0); PLATELET COUNT 276 10^3/UL (140-415)
[2018-02-28 05:49] LABS: WHITE BLOOD COUNT 5.8 10^3/ul (4.8-10.8)
[2018-02-28 06:16] LABS: ANION GAP 8 (8-16); BLOOD UREA NITROGEN 5 mg/dl (7-20); CALCIUM 8.6 mg/dl (8.4-10.2); CARBON DIOXIDE 34 mmol/L (21-31); CHLORIDE 99 mmol/L (97-110); CREATININE 0.46 mg/dl (0.44-1.00); GLUCOSE 198 mg/dl (70-220); POTASSIUM 3.4 mmol/L (3.5-5.1); SODIUM 138 mmol/L (135-144)
[2018-02-28] MEDS: PANTOPRAZOLE (EC) 40 MG TAB PO (06:47)
[2018-02-28] MEDS: CEFAZOLIN 2 GM/50 ML (PMX) 50 ML IVPB ×3 (06:48→21:54)
[2018-02-28] MEDS: GABAPENTIN 400 MG CAP PO ×3 (08:41→20:36)
[2018-02-28] MEDS: PAROXETINE 20 MG TAB PO (08:41)
[2018-02-28] MEDS: DOCUSATE SODIUM 100 MG CAP PO ×2 (08:41→20:36)
[2018-02-28] MEDS: METOPROLOL 25 MG TAB PO ×2 (08:42→20:36)
[2018-02-28] MEDS: INSULIN ASPART [NOVOLOG] 3 ML PEN SC ×4 (08:47→21:00)
[2018-02-28] MEDS: INSULIN DETEMIR [LEVEMIR] (100 UNITS/ML) SYG SC (08:47)
[2018-02-28] MEDS: BISACODYL (EC) 5 MG TAB PO (12:24)
[2018-02-28] MEDS: QUETIAPINE 25 MG TAB PO (20:36)
[2018-02-28] MEDS ORDERED: DOCUSATE SODIUM 100 MG CAP PO (21:00)
[2018-03-01] MEDS: HYDROmorphONE 0.5 MG/0.5 ML SYG IV (00:06)
[2018-03-01] MEDS: ACETAMINOPHEN 1000MG/100ML IV 100 ML IVPB ×2 (00:30→07:30)
[2018-03-01 05:08] LABS: ADD MAN DIFF? NO
[2018-03-01 05:15] LABS: BASOPHILS % 0.5 % (0.0-2.0); EOSINOPHILS # 0.1 10^3/ul (0.0-0.5); EOSINOPHILS % 1.2 % (0.0-7.0); HEMATOCRIT 35.4 % (37.0-47.0); HEMOGLOBIN 11.3 g/dl (12.0-16.0); LYMPHOCYTES # 1.5 10^3/ul (0.8-2.9); LYMPHOCYTES % 23.5 % (15.0-51.0); MEAN CORPUSCULAR HEMOGLOBIN 26.5 pg (29.0-33.0); MEAN CORPUSCULAR HGB CONC 31.9 g/dl (32.0-37.0); MEAN CORPUSCULAR VOLUME 82.9 fl (82.0-101.0); MEAN PLATELET VOLUME 10.6 fl (7.4-10.4); MONOCYTE # 0.7 10^3/ul (0.3-0.9); MONOCYTES % 10.3 % (0.0-11.0); NEUTROPHIL # 4.2 10^3/ul (1.6-7.5); NEUTROPHILS % 63.9 % (39.0-77.0); PLATELET COUNT 332 10^3/UL (140-415); RED BLOOD COUNT 4.27 10^6/ul (4.20-5.40); RED CELL DISTRIBUTION WIDTH 14.5 % (11.5-14.5)
[2018-03-01 05:15] LABS: WHITE BLOOD COUNT 6.5 10^3/ul (4.8-10.8)
[2018-03-01 05:44] LABS: ANION GAP 13 (8-16)
[2018-03-01 05:53] LABS: CARBON DIOXIDE 35 mmol/L (21-31); CHLORIDE 96 mmol/L (97-110); POTASSIUM 3.8 mmol/L (3.5-5.1); SODIUM 140 mmol/L (135-144)
[2018-03-01 05:56] LABS: BLOOD UREA NITROGEN 5 mg/dl (7-20); CALCIUM 9.5 mg/dl (8.4-10.2); CREATININE 0.51 mg/dl (0.44-1.00); GLUCOSE 402 mg/dl (70-220)
[2018-03-01] MEDS: GABAPENTIN 400 MG CAP PO ×3 (06:30→21:10)
[2018-03-01] MEDS: PANTOPRAZOLE (EC) 40 MG TAB PO (06:30)
[2018-03-01] MEDS: INSULIN ASPART [NOVOLOG] 3 ML PEN SC ×5 (06:35→21:00)
[2018-03-01] MEDS: CEFAZOLIN 2 GM/50 ML (PMX) 50 ML IVPB (07:00)
[2018-03-01] MEDS: HYDROCODONE/APAP (5/325) TAB PO (07:14)
[2018-03-01] MEDS: NS + KCL 20 MEQ 1,000 ML IV (07:30)
[2018-03-01] MEDS ORDERED: OXYCODONE/ACETAMINOPHEN (10/325) TAB PO (08:00)
[2018-03-01] MEDS ORDERED: ACETAMINOPHEN 325 MG TAB PO (08:00)
[2018-03-01] MEDS: PAROXETINE 20 MG TAB PO (08:15)
[2018-03-01] MEDS: METOPROLOL 25 MG TAB PO ×2 (08:15→21:15)
[2018-03-01] MEDS: DOCUSATE SODIUM 100 MG CAP PO ×2 (08:15→21:10)
[2018-03-01] MEDS: INSULIN DETEMIR [LEVEMIR] (100 UNITS/ML) SYG SC (08:20)
[2018-03-01] MEDS: OXYCODONE/ACETAMINOPHEN (10/325) TAB PO ×3 (09:25→20:03)
[2018-03-01] MEDS ORDERED: NA PHOSPHATE/BIPHOS 133 ML ENEMA PR (17:00)
[2018-03-01] MEDS: MAGNESIUM HYDROXIDE 30ML CUP PO (17:37)
[2018-03-01] MEDS: QUETIAPINE 25 MG TAB PO (21:10)
[2018-03-02] MEDS: OXYCODONE/ACETAMINOPHEN (10/325) TAB PO ×4 (00:01→15:27)
[2018-03-02] MEDS: PANTOPRAZOLE (EC) 40 MG TAB PO (04:44)
[2018-03-02] MEDS: GABAPENTIN 400 MG CAP PO ×4 (04:58→21:12)
[2018-03-02 05:18] LABS: ADD MAN DIFF? NO
[2018-03-02 05:25] LABS: WHITE BLOOD COUNT 8.3 10^3/ul (4.8-10.8)
[2018-03-02 05:25] LABS: BASOPHILS % 0.5 % (0.0-2.0); EOSINOPHILS # 0.1 10^3/ul (0.0-0.5); EOSINOPHILS % 1.6 % (0.0-7.0); HEMATOCRIT 35.4 % (37.0-47.0); HEMOGLOBIN 11.2 g/dl (12.0-16.0); LYMPHOCYTES # 1.8 10^3/ul (0.8-2.9); LYMPHOCYTES % 21.9 % (15.0-51.0); MEAN CORPUSCULAR HEMOGLOBIN 26.5 pg (29.0-33.0); MEAN CORPUSCULAR HGB CONC 31.6 g/dl (32.0-37.0); MEAN CORPUSCULAR VOLUME 83.9 fl (82.0-101.0); MEAN PLATELET VOLUME 10.6 fl (7.4-10.4); MONOCYTE # 0.7 10^3/ul (0.3-0.9); MONOCYTES % 8.2 % (0.0-11.0); NEUTROPHIL # 5.6 10^3/ul (1.6-7.5); NEUTROPHILS % 67.4 % (39.0-77.0); PLATELET COUNT 361 10^3/UL (140-415); RED BLOOD COUNT 4.22 10^6/ul (4.20-5.40); RED CELL DISTRIBUTION WIDTH 14.6 % (11.5-14.5)
[2018-03-02 06:09] LABS: ANION GAP 10 (8-16); BLOOD UREA NITROGEN 9 mg/dl (7-20); CALCIUM 9.3 mg/dl (8.4-10.2); CARBON DIOXIDE 33 mmol/L (21-31); CHLORIDE 99 mmol/L (97-110); CREATININE 0.46 mg/dl (0.44-1.00); GLUCOSE 259 mg/dl (70-220); POTASSIUM 3.7 mmol/L (3.5-5.1); SODIUM 138 mmol/L (135-144)
[2018-03-02] MEDS: DOCUSATE SODIUM 100 MG CAP PO (08:43)
[2018-03-02] MEDS: PAROXETINE 20 MG TAB PO (08:44)
[2018-03-02] MEDS: METOPROLOL 25 MG TAB PO ×2 (08:44→21:13)
[2018-03-02] MEDS: INSULIN ASPART [NOVOLOG] 3 ML PEN SC ×6 (08:45→21:00)
[2018-03-02] MEDS: INSULIN DETEMIR [LEVEMIR] (100 UNITS/ML) SYG SC (08:46)
[2018-03-02] MEDS: oxyCODONE (CR) 15 MG TAB [oxyCONTIN] PO ×2 (12:46→21:11)
[2018-03-02] MEDS: SENNA/DOCUSATE NA (8.6MG/50MG) TAB PO ×2 (12:47→21:12)
[2018-03-02] MEDS: CYCLOBENZAPRINE 10 MG TAB PO (18:34)
[2018-03-02] MEDS ORDERED: INSULIN GLARGINE [LANTus] (100 UNITS/ML) SYG SC (20:00)
[2018-03-02] MEDS: HYDROCODONE/APAP (5/325) TAB PO (21:11)
[2018-03-03] MEDS: HYDROCODONE/APAP (5/325) TAB PO ×2 (05:01→13:24)
[2018-03-03] MEDS: PANTOPRAZOLE (EC) 40 MG TAB PO (05:04)
[2018-03-03 05:22] LABS: ADD MAN DIFF? NO
[2018-03-03 05:26] LABS: BASOPHILS % 0.5 % (0.0-2.0); EOSINOPHILS # 0.1 10^3/ul (0.0-0.5); EOSINOPHILS % 1.7 % (0.0-7.0); HEMATOCRIT 35.2 % (37.0-47.0); HEMOGLOBIN 11.1 g/dl (12.0-16.0); LYMPHOCYTES # 1.5 10^3/ul (0.8-2.9); LYMPHOCYTES % 18.2 % (15.0-51.0); MEAN CORPUSCULAR HEMOGLOBIN 26.4 pg (29.0-33.0); MEAN CORPUSCULAR HGB CONC 31.5 g/dl (32.0-37.0); MEAN CORPUSCULAR VOLUME 83.8 fl (82.0-101.0); MONOCYTE # 0.8 10^3/ul (0.3-0.9); MONOCYTES % 9.7 % (0.0-11.0); NEUTROPHIL # 5.6 10^3/ul (1.6-7.5); NEUTROPHILS % 69.4 % (39.0-77.0); PLATELET COUNT 406 10^3/UL (140-415); RED CELL DISTRIBUTION WIDTH 14.4 % (11.5-14.5)
[2018-03-03 05:26] LABS: WHITE BLOOD COUNT 8.1 10^3/ul (4.8-10.8)
[2018-03-03 06:05] LABS: ANION GAP 11 (8-16); BLOOD UREA NITROGEN 8 mg/dl (7-20); CALCIUM 9.3 mg/dl (8.4-10.2); CARBON DIOXIDE 34 mmol/L (21-31); CHLORIDE 97 mmol/L (97-110); CREATININE 0.45 mg/dl (0.44-1.00); GLUCOSE 276 mg/dl (70-220); POTASSIUM 3.9 mmol/L (3.5-5.1); SODIUM 138 mmol/L (135-144)
[2018-03-03] MEDS: oxyCODONE (CR) 15 MG TAB [oxyCONTIN] PO ×2 (07:59→20:48)
[2018-03-03] MEDS: SENNA/DOCUSATE NA (8.6MG/50MG) TAB PO ×2 (08:33→20:48)
[2018-03-03] MEDS: METOPROLOL 25 MG TAB PO ×2 (08:34→20:49)
[2018-03-03] MEDS: PAROXETINE 20 MG TAB PO (08:34)
[2018-03-03] MEDS: GABAPENTIN 400 MG CAP PO ×3 (08:35→20:48)
[2018-03-03] MEDS: HYDROmorphONE 0.5 MG/0.5 ML SYG IM ×6 (08:36→19:39)
[2018-03-03] MEDS: INSULIN ASPART [NOVOLOG] 3 ML PEN SC ×7 (08:39→20:58)
[2018-03-03] MEDS: INSULIN DETEMIR [LEVEMIR] (100 UNITS/ML) SYG SC (10:53)
[2018-03-04] MEDS: HYDROmorphONE 0.5 MG/0.5 ML SYG IM ×3 (02:15→07:30)
[2018-03-04 05:31] LABS: WHITE BLOOD COUNT 5.7 10^3/ul (4.8-10.8)
[2018-03-04 05:31] LABS: ADD MAN DIFF? NO; BASOPHILS % 0.5 % (0.0-2.0); EOSINOPHILS # 0.1 10^3/ul (0.0-0.5); EOSINOPHILS % 2.3 % (0.0-7.0); HEMATOCRIT 36.3 % (37.0-47.0); HEMOGLOBIN 11.3 g/dl (12.0-16.0); LYMPHOCYTES # 1.5 10^3/ul (0.8-2.9); LYMPHOCYTES % 25.7 % (15.0-51.0); MEAN CORPUSCULAR HEMOGLOBIN 26.3 pg (29.0-33.0); MEAN CORPUSCULAR HGB CONC 31.1 g/dl (32.0-37.0); MEAN CORPUSCULAR VOLUME 84.4 fl (82.0-101.0); MEAN PLATELET VOLUME 10.4 fl (7.4-10.4); MONOCYTE # 0.6 10^3/ul (0.3-0.9); MONOCYTES % 10.7 % (0.0-11.0); NEUTROPHIL # 3.4 10^3/ul (1.6-7.5); NEUTROPHILS % 59.9 % (39.0-77.0); PLATELET COUNT 399 10^3/UL (140-415); RED CELL DISTRIBUTION WIDTH 14.6 % (11.5-14.5)
[2018-03-04] MEDS: PANTOPRAZOLE (EC) 40 MG TAB PO (05:33)
[2018-03-04 05:42] LABS: ANION GAP 15 (8-16); BLOOD UREA NITROGEN 9 mg/dl (7-20); CALCIUM 9.5 mg/dl (8.4-10.2); CARBON DIOXIDE 30 mmol/L (21-31); CHLORIDE 97 mmol/L (97-110); CREATININE 0.43 mg/dl (0.44-1.00); GLUCOSE 340 mg/dl (70-220); POTASSIUM 4.3 mmol/L (3.5-5.1); SODIUM 138 mmol/L (135-144)
[2018-03-04] MEDS: GABAPENTIN 400 MG CAP PO ×2 (07:28→12:23)
[2018-03-04] MEDS: METOPROLOL 25 MG TAB PO (08:45)
[2018-03-04] MEDS: oxyCODONE (CR) 15 MG TAB [oxyCONTIN] PO (08:45)
[2018-03-04] MEDS: PAROXETINE 20 MG TAB PO (08:45)
[2018-03-04] MEDS: SENNA/DOCUSATE NA (8.6MG/50MG) TAB PO (08:45)
[2018-03-04] MEDS: INSULIN ASPART [NOVOLOG] 3 ML PEN SC ×6 (08:50→13:03)
[2018-03-04] MEDS: INSULIN DETEMIR [LEVEMIR] (100 UNITS/ML) SYG SC (08:50)
[2018-03-04] MEDS: CYCLOBENZAPRINE 10 MG TAB PO (09:18)
[2018-03-04] MEDS: OXYCODONE/ACETAMINOPHEN (10/325) TAB PO (12:23)
== END 2018-03-04 13:00 | disposition home health service (06) ==
LOC: MS1 02-23 02:22 → REC 14:14 → ICU 21:23
PROVIDERS: Neurological Surgery
PROC: 0SG00A0 Fusion of Lumbar Vertebral Joint with Interbody Fusion Device, Anterior Approach, Anterior Column, Open Approach (ICD-10-PCS; principal; 2018-02-21 16:00)
PROC: 0ST20ZZ Resection of Lumbar Vertebral Disc, Open Approach (ICD-10-PCS; 2018-02-21 16:00)
PROC: 0SG30A0 Fusion of Lumbosacral Joint with Interbody Fusion Device, Anterior Approach, Anterior Column, Open Approach (ICD-10-PCS; 2018-02-21 16:00)
PROC: 0ST40ZZ Resection of Lumbosacral Disc, Open Approach (ICD-10-PCS; 2018-02-21 16:00)
PROC: 0SG30K1 Fusion of Lumbosacral Joint with Nonautologous Tissue Substitute, Posterior Approach, Posterior Column, Open Approach (ICD-10-PCS; 2018-02-21 17:32)
PROC: 0SG00K1 Fusion of Lumbar Vertebral Joint with Nonautologous Tissue Substitute, Posterior Approach, Posterior Column, Open Approach (ICD-10-PCS; 2018-02-21 17:32)
PROC: 01NB0ZZ Release Lumbar Nerve, Open Approach (ICD-10-PCS; 2018-02-21 17:32)
PROC: 0SB30ZZ Excision of Lumbosacral Joint, Open Approach (ICD-10-PCS; 2018-02-21 17:32)
DX: M51.17 Intervertebral disc disorders with radiculopathy, lumbosacral region (principal); E44.0 Moderate protein-calorie malnutrition; Z68.1 Body mass index [BMI] 19.9 or less, adult; I10 Essential (primary) hypertension; E78.5 Hyperlipidemia, unspecified; E11.40 Type 2 diabetes mellitus with diabetic neuropathy, unspecified; Z79.4 Long term (current) use of insulin; K59.00 Constipation, unspecified; M71.38 Other bursal cyst, other site; G89.29 Other chronic pain; M47.816 Spondylosis without myelopathy or radiculopathy, lumbar region; E88.2 Lipomatosis, not elsewhere classified
CPT/HCPCS: 72100; 72114; 72131; 80048; 80061; 82962; 83036; 85014; 85018; 85025; 85335; 85610; 86850; 86900; 86901; 86920; 87081; 88304; 93970; 97110; 97116; 97161; 97164; 97530

== ENCOUNTER 2018-11-17 20:05 | Inpatient (IN) | payer OTHER ==
[2018-11-17] MEDS: LIDOCAINE/MYLANTA 40 ML BTL PO (21:56)
[2018-11-17 22:07] LABS: ADD MAN DIFF? NO
[2018-11-17 22:14] LABS: WHITE BLOOD COUNT 7.8 10^3/ul (4.8-10.8)
[2018-11-17 22:14] LABS: BASOPHILS % 0.5 % (0.0-2.0); HEMATOCRIT 50.6 % (37.0-47.0); HEMOGLOBIN 16.2 g/dl (12.0-16.0); LYMPHOCYTES # 1.5 10^3/ul (0.8-2.9); MEAN CORPUSCULAR HEMOGLOBIN 25.6 pg (29.0-33.0); MEAN CORPUSCULAR VOLUME 80.1 fl (82.0-101.0); MEAN PLATELET VOLUME 11.8 fl (7.4-10.4); MONOCYTE # 0.3 10^3/ul (0.3-0.9); MONOCYTES % 3.3 % (0.0-11.0); NEUTROPHILS % 76.8 % (39.0-77.0); PLATELET COUNT 294 10^3/UL (140-415); RED BLOOD COUNT 6.32 10^6/ul (4.20-5.40); RED CELL DISTRIBUTION WIDTH 13.7 % (11.5-14.5)
[2018-11-17] MEDS: HYDROmorphONE 1 MG/ML SYG IV (22:19)
[2018-11-17] MEDS: ONDANSETRON 4 MG INJ IV (22:20)
[2018-11-17] MEDS: FAMOTIDINE 20 MG INJ IV (22:20)
[2018-11-17 22:31] LABS: ALANINE AMINOTRANSFERASE 30 IU/L (13-69); ALBUMIN/GLOBULIN RATIO 1.25; ALKALINE PHOSPHATASE 134 IU/L (42-121); ANION GAP 24 (5-13); ASPARTATE AMINO TRANSFERASE 22 IU/L (15-46); BILIRUBIN,INDIRECT 0.8 mg/dl (0-1.1); BILIRUBIN,TOTAL 0.8 mg/dl (0.2-1.3); BLOOD UREA NITROGEN 12 mg/dl (7-20); CALCIUM 10.7 mg/dl (8.4-10.2); CARBON DIOXIDE 20 mmol/L (21-31); CHLORIDE 97 mmol/L (97-110); CREATININE 0.47 mg/dl (0.44-1.00); Estimated GFR > 60 mL/min (>60); GLUCOSE 361 mg/dl (70-220); LIPASE 23 U/L (23-300); POTASSIUM 3.8 mmol/L (3.5-5.1); SODIUM 141 mmol/L (135-144)
[2018-11-17 22:32] LABS: ADD UMIC YES; UR ASCORBIC ACID NEGATIVE (NEGATIVE); UR BACTERIA FEW /HPF (NONE SEEN); UR BILIRUBIN (Dip) NEGATIVE (NEGATIVE); UR BLOOD (Dip) 1+ mg/dL (NEGATIVE); UR CLARITY CLOUDY (CLEAR); UR COLOR YELLOW (YELLOW); UR GLUCOSE (Dip) 3+ mg/dL (NEGATIVE); UR KETONES (Dip) 2+ mg/dL (NEGATIVE); UR LEUKOCYTE ESTERASE (Dip) 3+ Leu/ul (NEGATIVE); UR NITRITE (Dip) NEGATIVE (NEGATIVE); UR RBC 35 /HPF (0-5); UR SPECIFIC GRAVITY (Dip) 1.031 (1.003-1.030); UR SQUAMOUS EPITHELIAL CELL MODERATE /HPF (FEW); UR TOTAL PROTEIN (Dip) 3+ mg/dl (NEGATIVE); UR UROBILINOGEN (Dip) NEGATIVE (NEGATIVE); UR WBC 27 /HPF (0-5)
[2018-11-17 22:40] LABS: TROPONIN-I < 0.012 ng/ml (0.000-0.120)
[2018-11-18 00:37] LABS: AADO2 Arterial 13.5 mmHg (7.0-24.0); Allen Test ACCEPTAB; Arterial Base Excess -5.5 mmol/L (-3.0-3); Arterial Blood Gas Oxygen Sat 96.1 mmHG (95.0-98.0); Arterial COHb 0.7 % (0.0-3.0); Arterial Fraction of Oxyhgb 95.2 % (93.0-99.0); Arterial HCO3 19.5 mmol/L (22.0-26.0); Arterial MetHb 0.2 % (0.0-1.5); Arterial pCO2 36.9 mmhg (35-45); MODE ROOM AIR; Site Left Radial
[2018-11-18] MEDS ORDERED: NS + KCL 40 MEQ 1,000 ML IV (00:40)
[2018-11-18] MEDS ORDERED: DEXTROSE 10%/0.45% NACL 1,000 ML IV (00:40)
[2018-11-18] MEDS ORDERED: SOD CHLORIDE 0.9% 1,000 ML IV (00:40)
[2018-11-18] MEDS ORDERED: D10/0.45% NACL + KCL 40 MEQ 1,000 ML IV (00:40)
[2018-11-18] MEDS: LACTATED RINGER'S 680 ML IV (00:43)
[2018-11-18] MEDS ORDERED: DEXTROSE 50% 50 ML SYRINGE IV ×4 (01:00→12:00)
[2018-11-18] MEDS ORDERED: HYDROCODONE/APAP (5/325) TAB PO (01:30)
[2018-11-18] MEDS ORDERED: ALBUTEROL/IPRATROPIUM (NEB) 3 ML AMP NEB (01:30)
[2018-11-18] MEDS ORDERED: ONDANSETRON 4 MG INJ IV (01:30)
[2018-11-18] MEDS: D10/0.45% NACL + KCL 30 MEQ 1,000 ML IV ×2 (02:03→09:28)
[2018-11-18] MEDS: INSULIN REGULAR, HUMAN 100 UNIT in SOD CHLORIDE 0.9% 100 ML IV (02:04)
[2018-11-18] MEDS: NS + KCL 30 MEQ 1,000 ML IV (02:04)
[2018-11-18] MEDS: CEFTRIAXONE 1 GM/50 ML (PMX) 50 ML IVPB ×2 (03:16→13:46)
[2018-11-18 03:39] LABS: MODE ROOM AIR; MetHgb Venous 0.9 %; Sample Type Blood venous; Site VENOUS LINE; Venous COHb 0.3 %; Venous Fraction OxyHgb 22.1 %; Venous Oxygen Sat 22.4 mmHG (55.0-75.0); Venous Total Hemglobin 14.2 g/dl
[2018-11-18 03:47] LABS: ADD MAN DIFF? NO
[2018-11-18 04:09] LABS: WHITE BLOOD COUNT 8.5 10^3/ul (4.8-10.8)
[2018-11-18 04:09] LABS: BASOPHILS % 0.2 % (0.0-2.0); HEMOGLOBIN 14.3 g/dl (12.0-16.0); LYMPHOCYTES # 1.2 10^3/ul (0.8-2.9); LYMPHOCYTES % 13.9 % (15.0-51.0); MEAN CORPUSCULAR HGB CONC 31.8 g/dl (32.0-37.0); MEAN PLATELET VOLUME 11.6 fl (7.4-10.4); MONOCYTE # 0.3 10^3/ul (0.3-0.9); MONOCYTES % 3.3 % (0.0-11.0); NEUTROPHILS % 82.1 % (39.0-77.0); PLATELET COUNT 235 10^3/UL (140-415); RED BLOOD COUNT 5.49 10^6/ul (4.20-5.40); RED CELL DISTRIBUTION WIDTH 14.2 % (11.5-14.5)
[2018-11-18 04:10] LABS: ANION GAP 14 (5-13); BLOOD UREA NITROGEN 12 mg/dl (7-20); CALCIUM 9.4 mg/dl (8.4-10.2); CARBON DIOXIDE 26 mmol/L (21-31); CHLORIDE 101 mmol/L (97-110); CREATININE 0.44 mg/dl (0.44-1.00); Estimated GFR > 60 mL/min (>60); GLUCOSE 269 mg/dl (70-220); MAGNESIUM 1.4 mg/dl (1.7-2.5); PHOSPHORUS 3.7 mg/dl (2.5-4.9); POTASSIUM 3.7 mmol/L (3.5-5.1); SODIUM 141 mmol/L (135-144)
[2018-11-18 04:53] LABS: MODE ROOM AIR; MetHgb Venous 0.2 %; Sample Type Blood venous; Site VENOUS LINE; Venous COHb 0.5 %; Venous Fraction OxyHgb 66.7 %; Venous Oxygen Sat 67.2 mmHG (55.0-75.0); Venous Total Hemglobin 14.2 g/dl
[2018-11-18 06:13] LABS: ALANINE AMINOTRANSFERASE 25 IU/L (13-69); ALBUMIN 3.7 g/dl (3.3-4.9); ALBUMIN/GLOBULIN RATIO 1.23; ALKALINE PHOSPHATASE 78 IU/L (42-121); ANION GAP 9 (5-13); ASPARTATE AMINO TRANSFERASE 23 IU/L (15-46); BILIRUBIN,INDIRECT 0.2 mg/dl (0-1.1); BILIRUBIN,TOTAL 0.2 mg/dl (0.2-1.3); BLOOD UREA NITROGEN 11 mg/dl (7-20); CALCIUM 8.9 mg/dl (8.4-10.2); CARBON DIOXIDE 25 mmol/L (21-31); CHLORIDE 104 mmol/L (97-110); CREATININE 0.35 mg/dl (0.44-1.00); Estimated GFR > 60 mL/min (>60); GLUCOSE 256 mg/dl (70-220); POTASSIUM 3.9 mmol/L (3.5-5.1); SODIUM 138 mmol/L (135-144); TOTAL PROTEIN 6.7 g/dl (6.1-8.1)
[2018-11-18 06:37] LABS: MAGNESIUM 1.3 mg/dl (1.7-2.5)
[2018-11-18 06:37] LABS: PHOSPHORUS 3.2 mg/dl (2.5-4.9)
[2018-11-18] MEDS: ACCU-CHEK XX ×4 (07:38→20:14)
[2018-11-18] MEDS: FAMOTIDINE 20 MG INJ IV ×2 (08:08→20:07)
[2018-11-18] MEDS: HEPARIN 5,000 UNIT/1 ML VIAL SC ×2 (08:11→20:09)
[2018-11-18] MEDS: INSULIN GLARGINE [LANTus] (100 UNITS/ML) SYG SC (08:18)
[2018-11-18 09:50] LABS: ANION GAP 6 (5-13); BLOOD UREA NITROGEN 7 mg/dl (7-20); CARBON DIOXIDE 28 mmol/L (21-31); CHLORIDE 104 mmol/L (97-110); Estimated GFR > 60 mL/min (>60); GLUCOSE 193 mg/dl (70-220); PHOSPHORUS 2.4 mg/dl (2.5-4.9); POTASSIUM 4.5 mmol/L (3.5-5.1); SODIUM 138 mmol/L (135-144)
[2018-11-18 10:14] LABS: MAGNESIUM 1.5 mg/dl (1.7-2.5)
[2018-11-18] MEDS ORDERED: GLUCAGON 1 MG INJ IM (12:00)
[2018-11-18] MEDS ORDERED: GLUCOSE GEL 15 GRAM TUBE BUCCAL (12:00)
[2018-11-18] MEDS ORDERED: GLUCOSE GEL 15 GRAM TUBE PO ×2 (12:00)
[2018-11-18] MEDS: INSULIN ASPART [NOVOLOG] 3 ML PEN SC ×3 (12:44→20:10)
[2018-11-18] MEDS: MAGNESIUM SULFATE 4 GM/100 ML 100 ML IVPB (12:44)
[2018-11-18] MEDS: METOPROLOL 50 MG TAB PO ×2 (13:09→20:04)
[2018-11-18] MEDS: ACETAMINOPHEN 650MG/20.3ML CUP PO (13:39)
[2018-11-18] MEDS: GABAPENTIN 400 MG CAP PO (20:04)
[2018-11-18] MEDS: QUETIAPINE 100 MG TAB PO (23:57)
[2018-11-19] MEDS: hydrALAzine 20 MG INJ IV (01:00)
[2018-11-19] MEDS: ACCU-CHEK XX (01:42)
[2018-11-19 05:14] LABS: ADD MAN DIFF? NO
[2018-11-19 05:15] LABS: WHITE BLOOD COUNT 5.5 10^3/ul (4.8-10.8)
[2018-11-19 05:15] LABS: BASOPHILS % 0.7 % (0.0-2.0); EOSINOPHILS # 0.1 10^3/ul (0.0-0.5); EOSINOPHILS % 1.1 % (0.0-7.0); HEMATOCRIT 43.3 % (37.0-47.0); LYMPHOCYTES # 2.4 10^3/ul (0.8-2.9); LYMPHOCYTES % 44.2 % (15.0-51.0); MEAN CORPUSCULAR HEMOGLOBIN 26.2 pg (29.0-33.0); MEAN CORPUSCULAR HGB CONC 32.3 g/dl (32.0-37.0); MEAN CORPUSCULAR VOLUME 80.9 fl (82.0-101.0); MEAN PLATELET VOLUME 12.1 fl (7.4-10.4); MONOCYTE # 0.4 10^3/ul (0.3-0.9); MONOCYTES % 7.1 % (0.0-11.0); NEUTROPHIL # 2.6 10^3/ul (1.6-7.5); NEUTROPHILS % 46.7 % (39.0-77.0); PLATELET COUNT 200 10^3/UL (140-415); RED BLOOD COUNT 5.35 10^6/ul (4.20-5.40); RED CELL DISTRIBUTION WIDTH 14.5 % (11.5-14.5)
[2018-11-19 05:37] LABS: ANION GAP 5 (5-13); BLOOD UREA NITROGEN 11 mg/dl (7-20); CALCIUM 9.2 mg/dl (8.4-10.2); CARBON DIOXIDE 29 mmol/L (21-31); CHLORIDE 105 mmol/L (97-110); CREATININE 0.49 mg/dl (0.44-1.00); Estimated GFR > 60 mL/min (>60); GLUCOSE 271 mg/dl (70-220); POTASSIUM 3.9 mmol/L (3.5-5.1); SODIUM 139 mmol/L (135-144)
[2018-11-19] MEDS: GABAPENTIN 400 MG CAP PO ×2 (09:21→13:30)
[2018-11-19] MEDS: FAMOTIDINE 20 MG INJ IV (09:22)
[2018-11-19] MEDS: METOPROLOL 50 MG TAB PO (09:22)
[2018-11-19] MEDS: INSULIN GLARGINE [LANTus] (100 UNITS/ML) SYG SC (09:23)
[2018-11-19] MEDS: INSULIN ASPART [NOVOLOG] 3 ML PEN SC ×2 (09:24→12:39)
[2018-11-19] MEDS: HEPARIN 5,000 UNIT/1 ML VIAL SC (09:24)
[2018-11-19] MEDS: CEFTRIAXONE 1 GM/50 ML (PMX) 50 ML IVPB (13:30)
[2018-11-19] MEDS ORDERED: FAMOTIDINE 20 MG TAB PO (21:00)
== END 2018-11-19 16:35 | disposition home or self-care (01) | DRG 638 ==
LOC: ICU 11-18 00:57 → E/R 20:05
PROVIDERS: Internal Medicine
DX: E10.10 Type 1 diabetes mellitus with ketoacidosis without coma (principal); N39.0 Urinary tract infection, site not specified; Z79.4 Long term (current) use of insulin; Z91.19 Patient's noncompliance with other medical treatment and regimen; I10 Essential (primary) hypertension; R10.13 Epigastric pain; G62.9 Polyneuropathy, unspecified
CPT/HCPCS: 36415; 36600; 71045; 74176; 80048; 80053; 81001; 82803; 82962; 83036; 83690; 83735; 84100; 84484; 85025; 87081; 93005; 96374; 96375; 99285-25